=== PATIENT | female | born 1975 | race Caucasian/White ===

== ENCOUNTER 2021-05-23 21:56 | Emergency (ER) | payer OTHER ==
[~2021-05-23] VITALS: Ht 162.6 cm; Wt 77.1 kg
--- NOTE | 2021-05-23 22:18 | NUR ---
pt bibra c/o bilateral flank pain that radiates to both shoulders. Pt aaox4 breathing evenly and unlabored. Pt attached to monitor and pox. Pt skin is warm and dry. pt denies dysuria or hematuria. Pt given blanket and call light within reach
[2021-05-23] MEDS ORDERED: ONDANSETRON HCL/PF 4 MG/2 ML VIAL ONE (22:36)
[2021-05-23] MEDS ORDERED: KETOROLAC TROMETHAMINE 15 MG/ML VIAL ONE (22:36)
--- NOTE | 2021-05-23 22:42 | NUR ---
urine sent to lab
--- NOTE | 2021-05-23 22:44 | NUR ---
DEBRA FRIEND, THALIA
[2021-05-23 22:51] LABS: BASOPHILS % (AUTO) 0.2 % (0.0-2.0); EOSINOPHILS % (AUTO) 0.5 % (0.0-6.0); HEMATOCRIT 39 % (33-45); HEMOGLOBIN 13.1 g/dL (11.5-14.8); LYMPHOCYTES # (AUTO) 0.7 K/uL (0.8-4.8); LYMPHOCYTES % (AUTO) 9.7 % (20.0-44.0); MEAN CORPUSCULAR HGB CONC 34 g/dl (31.0-36.0); MEAN CORPUSCULAR VOLUME 91 fL (82-100); MONOCYTES # (AUTO) 0.4 K/uL (0.1-1.30); NEUTROPHILS # (AUTO) 6.1 K/uL (1.8-8.9); NEUTROPHILS % (AUTO) 84.6 % (43.0-81.0); PLATELET COUNT (AUTO) 310 K/uL (150-450); WHITE BLOOD COUNT (AUTO) 7.2 K/uL (4.3-11.0)
[2021-05-23 22:53] LABS: BILIRUBIN,URINE SMALL (NEGATIVE); COLOR,URINE YELLOW (YELLOW); LEUKOCYTE ESTERASE ,URINE SMALL (NEGATIVE); NITRITE, URINE NEGATIVE (NEGATIVE); PH,URINE 6.5 (5.0-8.0); PROTEIN,URINE 30 mg/dl (NEGATIVE); UGLUCOSE NEGATIVE (NEGATIVE)
[2021-05-23] MEDS ORDERED: ONDANSETRON HCL/PF 4 MG/2 ML VIAL IVP ONE (23:00)
[2021-05-23] MEDS ORDERED: IV NS 0.9% 1,000 ML BAG IV ONE (23:00)
[2021-05-23] MEDS ORDERED: KETOROLAC TROMETHAMINE INJ 30 MG/ML VIAL IV ONE (23:00)
[2021-05-23 23:08] LABS: CALCIUM, SERUM 8.3 mg/dL (8.5-10.1); CREATININE 0.9 mg/dL (0.6-1.3); POTASSIUM 3.3 mmol/L (3.5-5.1)
[2021-05-23 23:15] LABS: ALBUMIN 3.7 g/dL (3.4-5.0); BILIRUBIN,DIRECT 0.1 mg/dL (0.0-0.2); BILIRUBIN,TOTAL 0.5 mg/dL (0.2-1.0); TOTAL PROTEIN, SERUM 7.4 g/dL (6.4-8.2)
[2021-05-23 23:34] LABS: BACTERIA,URINE Moderate /HPF (None Seen); SQUAMOUS EPITHELIAL CELL,UR Many /HPF (None Seen)
--- NOTE | 2021-05-23 23:44 | NUR ---
Arelis marie in [facility] - 05/24/21 at 0141 by JOSE md verbal order bentyl 10mg
--- NOTE | 2021-05-23 23:44 | NUR ---
verbal order 10mg bentyl po
[2021-05-23] MEDS ORDERED: DICYCLOMINE HCL 10 MG CAPSULE PO ONE (23:45)
--- NOTE | 2021-05-23 23:50 | NUR ---
pt refused med
--- NOTE | 2021-05-24 00:14 | NUR ---
per lab, hcg serum is running and will be done in 20min
[2021-05-24] MEDS ORDERED: ONDA4TAB11 PO (00:16)
[2021-05-24] MEDS ORDERED: DICY10CA37 PO (00:16)
[2021-05-24] MEDS ORDERED: LOPE2CAP PO (00:16)
--- NOTE | 2021-05-24 01:02 | NUR ---
Patient discharged to home in stable condition. Written and verbal after care instructions given. Patient verbalizes understanding of instruction. IV removed. Catheter intact and site benign. Pressure and 4x4 applied to site. No bleeding noted.Pt ambulatory with a steady gait
[2021-05-24 01:45] VITALS: BP 139/86
== END 2021-05-24 01:02 | disposition home or self-care (01) ==
LOC: ER 21:56
DX: K52.9 Noninfective gastroenteritis and colitis, unspecified (principal); Z79.899 Other long term (current) drug therapy
CPT/HCPCS: 36415; 80048; 80076; 81001; 83690; 84702; 85025; 87086; 96361; 96374; 96375; 99284; J1885; J2405; J7030